=== PATIENT | female | born 1980 | race Caucasian/White ===

== ENCOUNTER → 2017-02-18 | Outpatient (CLI) | payer BC ==
[~2017-02-18] MED LIST: ASPIRIN325 MG PO; CELEBREX200 MG PO; NEURONTIN300 MG PO; NUCYNTA50 MG PO
== END | disposition disaster alternative care site (69) ==
LOC: GRAD 09:20
DX: M54.2 Cervicalgia (principal); M79.601 Pain in right arm; M79.602 Pain in left arm